=== PATIENT | male | born 1995 ===

== ENCOUNTER 2020-09-03 14:31 | Emergency (ER) | payer MEDICAID ==
[2020-09-03 14:56] VITALS: BP 138/70
== END 2020-09-03 20:01 | disposition left against medical advice (07) ==
LOC: ED 14:31
DX: R07.89 Other chest pain (principal); Z53.21 Procedure and treatment not carried out due to patient leaving prior to being seen by health care provider
CPT/HCPCS: 36415; 71046; 80053; 84484; 85025; 93005